=== PATIENT | female | born 1995 | race Caucasian/White ===

== ENCOUNTER 2021-12-03 07:02 | Outpatient (REF) | payer OTHER, SELFPAY ==
--- NOTE | ~2021-12-03 | XR_ITS ---
EXAMINATION: XR HIP, LEFT. XR KNEE, LEFT. CLINICAL INFORMATION: Left hip pain. Left knee pain. COMPARISON: None TECHNIQUE: AP and frog-lateral views of the left hip. 4 views of the left knee. FINDINGS: Left hip: Normal alignment. No joint space narrowing. No fracture or soft tissue calcification. Mild sclerosis along the left sacroiliac joint. Left knee: Normal alignment. No fracture. No focal osseous lesion or soft tissue calcification. No joint effusion. No joint space narrowing. XR/XR knee LT 3V IMPRESSION: Left hip: Normal. Mild sclerosis is noted along the left SI joint. Left knee: Normal.
--- NOTE | ~2021-12-03 | XR_ITS ---
EXAMINATION: XR LUMBOSACRAL SPINE CLINICAL INFORMATION: Low back pain COMPARISON: None TECHNIQUE: Three views of the lumbosacral spine. FINDINGS: Normal alignment and lumbar lordosis. No fracture or focal osseous lesion. Intervertebral disc heights are preserved. Mild sclerosis present along the left sacroiliac joint, possibly the right SI joint as well. XR/XR lumbar spine 2-3V IMPRESSION: Nonspecific sclerosis along the left and possibly right sacroiliac joints which may be degenerative or the sequela of a previous inflammatory arthritis. This could be further evaluated with MRI if indicated. Normal lumbar spine.
--- NOTE | ~2021-12-03 | XR_ITS ---
EXAMINATION: XR HIP, LEFT. XR KNEE, LEFT. CLINICAL INFORMATION: Left hip pain. Left knee pain. COMPARISON: None TECHNIQUE: AP and frog-lateral views of the left hip. 4 views of the left knee. FINDINGS: Left hip: Normal alignment. No joint space narrowing. No fracture or soft tissue calcification. Mild sclerosis along the left sacroiliac joint. Left knee: Normal alignment. No fracture. No focal osseous lesion or soft tissue calcification. No joint effusion. No joint space narrowing. XR/XR hip LT min 2V IMPRESSION: Left hip: Normal. Mild sclerosis is noted along the left SI joint. Left knee: Normal.
== END 2021-12-03 07:03 | disposition home or self-care (01) ==
LOC: HO.XRAY 07:02
PROVIDERS: PCP Internal Medicine; Visit Provider Internal Medicine
DX: M25.552 Pain in left hip (principal); M54.50 Low back pain, unspecified; M25.562 Pain in left knee
CPT/HCPCS: 72100; 73502; 73562

== ENCOUNTER 2021-12-04 13:06 | Outpatient (REF) | payer OTHER, SELFPAY ==
--- NOTE | ~2021-12-04 | XR_ITS ---
EXAMINATION: XR HIP, RIGHT CLINICAL INFORMATION: Right hip pain COMPARISON: None TECHNIQUE: Two views of the right hip. FINDINGS: No fracture, dislocation, or arthropathy. No hip joint narrowing or erosive change or visible chondrocalcinosis. The right SI joint and the pubis are unremarkable. XR/XR hip RT min 2V IMPRESSION: Normal right hip.
== END 2021-12-04 13:07 | disposition home or self-care (01) ==
LOC: HO.XRAY 13:06
PROVIDERS: PCP Internal Medicine; Visit Provider Internal Medicine
DX: M25.551 Pain in right hip (principal)
CPT/HCPCS: 73502

== ENCOUNTER 2021-12-06 19:56 | Emergency (ER) | payer OTHER, SELFPAY ==
--- NOTE | ~2021-12-06 | XR_ITS ---
EXAMINATION: XR CHEST CLINICAL INFORMATION: Chest pain COMPARISON: None TECHNIQUE: Frontal view of the chest was obtained. FINDINGS: No significant abnormality is noted involving the heart, lungs, mediastinum, bony thorax or soft tissues. There is a mild thoracolumbar scoliosis. XR/XR chest 1V IMPRESSION: No acute thoracic disease.
[2021-12-06 19:58] VITALS: BP 118/71; PULSE 81; RESP 16; TEMP 36.9; O2SAT 100; BMI 36.4
--- NOTE | 2021-12-06 20:06 | ECG_ITS ---
Test Reason : chest pain Blood Pressure : / mmHG Vent. Rate : 081 BPM Atrial Rate : 081 BPM P-R Int : 130 ms QRS Dur : 086 ms QT Int : 370 ms P-R-T Axes : 045 035 045 degrees QTc Int : 429 ms Normal sinus rhythm with sinus arrhythmia Normal ECG No previous ECGs available Referred By: Generic ED Physician Electronically Signed By:NICOLAS ANDRADE MD
[2021-12-06 20:17] LABS: MANUAL DIFF FLAG NO
[2021-12-06 20:19] LABS: Basophils Percent Auto 0.3 % (0-2); Eosinophils Absolute Auto 0.1 X10*3/uL (0.0-0.4); Eosinophils Percent Auto 1.3 % (0-4); Hematocrit 37.1 % (37.0-47.0); Hemoglobin 11.9 g/dl (12.0-16.0); Imm Gran Abs Auto 0.01 X10*3/uL (0.00-0.03); Imm Gran Pct Auto 0.2 % (0.0-0.4); Lymphocytes Absolute Auto 2.8 X10*3/uL (1.2-4.9); Mean Corpuscular HGB Conc 32.1 g/dl (31.0-35.0); Mean Corpuscular Hemoglobin 26.7 pg (27.0-33.0); Mean Corpuscular Volume 83.2 fL (80.0-98.0); Mean Platelet Volume 9.5 fL (9.4-12.3); Monocytes Absolute Auto 0.5 X10*3/uL (0.1-1.2); Monocytes Percent Auto 7.3 % (2-11); Neutrophils Percent Auto 46.9 % (45-73); Platelet Count 284 X10*3/uL (160-400); Red Blood Count 4.46 X10*6/uL (4.20-5.50); Red Cell Distribution Width 13.4 % (11.0-16.0); White Blood Count 6.3 X10*3/uL (4.8-10.8)
[2021-12-06 20:21] VITALS: BP 114/62; PULSE 72; RESP 16; TEMP 36.6; O2SAT 100
[2021-12-06 20:44] LABS: Appearance Urine CLEAR; Color Urine STRAW; Glucose Urine UA NEG (NEG); Leukocyte Esterase Urine NEG (NEG); Nitrite Urine NEG (NEG); Specific Gravity - Urine <= 1.005 (1.005-1.025); Urine Blood NEG (NEG); Urine Ketones NEG (NEG); Urine Protein NEG (NEG-TRACE)
[2021-12-06 20:46] LABS: Anion Gap 10 (12-20); Blood Urea Nitrogen 12 mg/dL (9-16); Calcium 9.4 mg/dL (8.4-10.2); Carbon Dioxide 29 mmol/L (22-29); Chloride 106 mmol/L (96-108); Creatinine Clr Calc Pharmacy 131.4; Estimated Glomerular Filt Rate > 60; Glucose Random 100 mg/dL (60-115); Sodium 141 mmol/L (135-145)
[2021-12-06 20:48] LABS: UPreg QC Valid YES; Urine Pregnancy NEGATIVE (NEGATIVE)
[2021-12-06 20:53] LABS: Troponin-I High Sensitivity < 3.5 ng/L (<3.5-17.0)
--- NOTE | 2021-12-06 21:08 | ED.CHESTPAIN ---
HPI - Chest Pain General Chief Complaint: Chest Pain Stated Complaint: chest pain has been happening for awhile Time Seen by Provider: 12/06/21 21:08 Source: patient Mode of arrival: ambulatory Limitations: no limitations History of Present Illness HPI narrative: This is a 26-year-old female presenting to the emergency department with intermittent chest pain x2 months. Patient tells me that the pain is substernal, feels like a pressure not so much pain she tells me at times she feels it lower down like it her epigastric region she tells me it is a tightness sensation/discomfort. She tells me these episodes are random she thinks they last anywhere between 5 minutes to an hour sometimes they happen daily other times they skip a day. She reports sometimes she gets palpitations however not always. She cannot tell me exactly what makes the pain better or worse. She is not experiencing chest pain at this time. She tells me that sometimes when she takes a deep breath and she feels tightness. This has been going on for the past 2 months. She tells me she has a 5-month-old at home and another child and she is under a good amount of stress. She denies any other symptoms at this time. She has no cardiac history. No significant family history. She denies drugs, alcohol and tobacco. She denies fevers, chills, shortness of breath, nausea, vomiting, abdominal pain, recent trauma, headache, dizziness, weakness, she denies calf pain, leg swell Patient is not on control medication pain MD complaint: chest discomfort Onset (ago): month(s) (2) Timing of current episode: episodic Prior episodes: Yes Pain location: substernal Pain radiation: none Severity: mild Quality: tightness Relieving factors: nothing Exacerbating factors: nothing Treatment prior to arrival: none Related Data Allergies Allergy/AdvReac Type Severity Reaction Status Date / Time iodine AdvReac Anaphylaxis Verified 12/06/21 20:12 latex AdvReac Anaphylaxis Verified 12/06/21 20:12 Review of Systems Review of Systems: Constitutional : No Weight loss, No Fever, No Chills, No Fatigue, No Malaise ENT/Mouth : No sore throat, No Rhinorrhea Eyes: No Eye Pain, No Swelling, No Redness Cardiovascular : + Chest Pain, No SOB, No Dyspnea on Exertion, No Orthopnea, No Edema, No Palpitations Respiratory : No Cough, No Sputum, No Wheezing Gastrointestinal : No Nausea, No Vomiting, No Diarrhea, No Constipation, No abdominal Pain, No Hematochezia, No Melena Genitourinary : No Dysuria, No Urinary Frequency, No Hematuria, Musculoskeletal : No joint pain, No Myalgias, No Joint Swelling Skin : No Skin Lesions, No rash Neuro : No Weakness, No Numbness, No Dizziness, No Headache Psych : No Anxiety/Panic, No Depression All other systems reviewed and are negative Yes all other systems are reviewed and are negative [facility] Past Medical History Attestation statement: The following information was validated with the patient. Source: old records reviewed and nursing notes reviewed Medical History No known health problems Social History Social History Advance Directives: No Patient : No Physical Exam Vital Signs: Vital Signs: Last Vital Signs Temp 97.8 F 12/06/21 20:21 Pulse 72 12/06/21 20:21 Resp 16 12/06/21 20:21 BP 114/62 12/06/21 20:21 Pulse Ox 100 12/06/21 20:21 BMI result Body Mass Index 36.4 VSS Appearance: Alert.? Oriented X3.? No acute distress.? Head: Normocephalic, atraumatic, no step-offs or deformities Eyes: Pupils equal, round and reactive to light.? ENT: Pharynx normal.? Neck: Normal inspection.? Neck supple.? CVS: Normal heart rate and rhythm.? Pulses normal.? Respiratory: No respiratory distress.? Breath sounds normal.? Abdomen: Soft and nontender.? Skin: Skin warm and dry.? Normal skin color.? Normal skin turgor.? Extremities: No lower extremity edema.? No calf ttp, negative Chiquis bilaterally 5/5 strength to bilateral upper and lower extremities Back: No midline tenderness, no C-spine tenderness, full range of motion, no CVA tenderness bilaterally Neuro: Oriented X 3.? No motor deficit.? No sensory deficit. CN 2-12 intact Course Reevaluation(s) Reevaluation #1: CBC within normal limits. No acute electrolyte abnormalities. Troponin less than 3.5. Urine negative. EKG pending. Chest x-ray pending. Time: 21:34 Reevaluation #2: D-dimer negative. EKG nonischemic. Unlikely ACS, unlikely PE. Chest x-ray within normal limits. At this time patient will be discharged home with cardiology follow-up. Advised her to follow-up with her PCP. Chest discomfort could be secondary to anxiety however she should follow up with Cardiology as she may require a Holter monitor to rule out various arrhythmias. Comfortable with discharge home. At time of discharge patient he in free, vital signs stable Time: 22:46 MDM - Chest Pain MDM Narrative Medical decision making narrative: 2127 26 yo f no significant pmhx presents to ed w/ substernal chest discomfort X2 months. No cardiac hx, no family cardiac hx. Under a lot of stress PE benign This is likely anxiety related however will rule out ACS. And PE. Unlikely that it is ACS or PE however it will be ruled out. Will also rule out etiologies such as pneumonia P Plan- CXR, labs, trop, dimer Medical Records Data Attestation: I reviewed the patient's medical records. Lab Data Attestation: I reviewed the patient's lab results. Result diagrams: 12/06/21 20:11 12/06/21 20:11 Labs: Lab Results 12/06/21 12/06/21 12/06/21 Range/Units 20:11 20:11 20:11 WBC 6.3 (4.8-10.8) X10*3/uL RBC 4.46 (4.20-5.50) X10*6/uL Hgb 11.9 L (12.0-16.0) g/dl Hct 37.1 (37.0-47.0) % MCV 83.2 (80.0-98.0) fL MCH 26.7 L (27.0-33.0) pg MCHC 32.1 (31.0-35.0) g/dl RDW 13.4 (11.0-16.0) % Plt Count 284 (160-400) X10*3/uL MPV 9.5 (9.4-12.3) fL Immature Gran % (Auto) 0.2 (0.0-0.4) % Neut % (Auto) 46.9 (45-73) % Lymph % (Auto) 44.0 H (20-40) % [place] % (Auto) 7.3 (2-11) % Eos % (Auto) 1.3 (0-4) % Baso % (Auto) 0.3 (0-2) % Lymph # (Auto) 2.8 (1.2-4.9) X10*3/uL [place] # (Auto) 0.5 (0.1-1.2) X10*3/uL Eos # (Auto) 0.1 (0.0-0.4) X10*3/uL Baso # (Auto) 0.0 (0.0-0.2) X10*3/uL Abs Immat Gran (auto) 0.01 (0.00-0.03) X10*3/uL Absolute Neuts (auto) 3.0 (2.0-8.3) x10*3/uL Absolute Nucleated RBC 0.000 (0.0-0.012) X10*3/uL Nucleated RBC % (auto) 0.0 (0.0-0.2) /100WBC D-Dimer High Sensitivty NG/ML Sodium 141 (135-145) mmol/L Potassium 4.0 (3.3-5.1) mmol/L Chloride 106 (96-108) mmol/L Carbon Dioxide 29 (22-29) mmol/L Anion Gap 10 L (12-20) BUN 12 (9-16) mg/dL Creatinine 0.77 (0.5-1.4) mg/dL Estim Creat Clear Calc 131.4 Estimated GFR > 60 Random Glucose 100 (60-115) mg/dL Calcium 9.4 (8.4-10.2) mg/dL Troponin I High Sens < 3.5 (<3.5-17.0) ng/L Urine Color Urine Appearance Urine pH (5.0-8.0) Ur Specific [place] (1.005-1.025) Urine Protein (NEG-TRACE) MG/DL Urine Glucose (UA) (NEG) MG/DL Urine Ketones (NEG) MG/DL Urine Blood (NEG) Urine Nitrite (NEG) Ur Leukocyte Esterase (NEG) Urine Test (NEGATIVE) 12/06/21 12/06/21 12/06/21 Range/Units 20:29 20:29 21:49 WBC (4.8-10.8) X10*3/uL RBC (4.20-5.50) X10*6/uL Hgb (12.0-16.0) g/dl Hct (37.0-47.0) % MCV (80.0-98.0) fL MCH (27.0-33.0) pg MCHC (31.0-35.0) g/dl RDW (11.0-16.0) % Plt Count (160-400) X10*3/uL MPV (9.4-12.3) fL Immature Gran % (Auto) (0.0-0.4) % Neut % (Auto) (45-73) % Lymph % (Auto) (20-40) % [place] % (Auto) (2-11) % Eos % (Auto) (0-4) % Baso % (Auto) (0-2) % Lymph # (Auto) (1.2-4.9) X10*3/uL [place] # (Auto) (0.1-1.2) X10*3/uL Eos # (Auto) (0.0-0.4) X10*3/uL Baso # (Auto) (0.0-0.2) X10*3/uL Abs Immat Gran (auto) (0.00-0.03) X10*3/uL Absolute Neuts (auto) (2.0-8.3) x10*3/uL Absolute Nucleated RBC (0.0-0.012) X10*3/uL Nucleated RBC % (auto) (0.0-0.2) /100WBC D-Dimer High Sensitivty < 150 NG/ML Sodium (135-145) mmol/L Potassium (3.3-5.1) mmol/L Chloride (96-108) mmol/L Carbon Dioxide (22-29) mmol/L Anion Gap (12-20) BUN (9-16) mg/dL Creatinine (0.5-1.4) mg/dL Estim Creat Clear Calc Estimated GFR Random Glucose (60-115) mg/dL Calcium (8.4-10.2) mg/dL Troponin I High Sens (<3.5-17.0) ng/L Urine Color STRAW Urine Appearance CLEAR Urine pH 6.0 (5.0-8.0) Ur Specific [place] <= 1.005 (1.005-1.025) Urine Protein NEG (NEG-TRACE) MG/DL Urine Glucose (UA) NEG (NEG) MG/DL Urine Ketones NEG (NEG) MG/DL Urine Blood NEG (NEG) Urine Nitrite NEG (NEG) Ur Leukocyte Esterase NEG (NEG) Urine Test NEGATIVE (NEGATIVE) ECG Data ECG #1: Attestation: I personally reviewed and interpreted this ECG as follows: ECG interpretation date: 12/06/21 ECG interpretation time: 22:47 Prior ECG tracings: not available for review Interpretation: Ventricular rate of 81, CT normal, QRS normal, QT/QTC normal. EKG shows normal sinus rhythm with sinus arrhythmia. No ST elevations or inversions concerning for ischemia. No previous to compare with. Critical Care Time Critical Care Time Critical Care Time: No Discharge Plan Discharge Clinical Impression: Chest pain not due to acute coronary syndrome Patient Disposition: Home, Self-Care Instructions: Chest Wall Pain (ED) Additional Instructions: Take your medications as prescribed. If you were prescribed antibiotics today, it is important that you take your medication to their entirety, do not skip any doses, do not finish them early. Follow-up with your primary care provider this week. Follow-up with Cardiology if her symptoms do not improve within a week. Return to the emergency department with new or worsening symptoms. In case of emergency call 911 Your EKG was normal. Cardiac enzymes were within normal limits. Your chest x-ray was also within normal limits. Your screening test for a blood clot was negative. Referrals: Saravanan Stokes MD [Primary Care Provider] - 2 days Huseyin Key MD [Physician] - 1 week Stand Alone Forms: Work/School Release
[2021-12-06 22:10] LABS: D Dimer High Sensitivity < 150 NG/ML
--- NOTE | 2021-12-06 23:08 | PC.NURSE ---
I assumed care of this pt upon her arrival to bed 19. She states she came to the ED for evaluation of chest tightness/pressure that she experiences intermittently, at least once a day for a while now. She appears well. Currently she is chest pain/chest pressure free. Respirations spontaneous and non-labored, speech clear and appropriate, no cyanosis, she speaks in full sentences. She is alert, oriented x 3, calm and cooperative and makes eye contact with RN. No nausea. No vomiting. No change in bowel or bladder habits. She was seen by ER MD, additional labs were obtained - which were negative - and she has been discharged at this time. She verbalized an understanding of all D/C orders and ambulated out of the ED independently and with steady gait.
== END 2021-12-06 23:08 | disposition home or self-care (01) ==
PROVIDERS: Physician Assistant; Emergency Provider Emergency Medicine Emergency Medical Services; PCP Internal Medicine
DX: R07.89 Other chest pain (principal)
CPT/HCPCS: 36415; 71045; 80048; 81003; 81025; 84484; 85025; 85379; 93005; 99283

== ENCOUNTER 2022-07-01 13:41 | Outpatient (REF) | payer OTHER, SELFPAY ==
--- NOTE | ~2022-07-01 | US_ITS ---
EXAMINATION: US PELVIS CLINICAL INFORMATION: Abnormal uterine and vaginal bleeding COMPARISON: None TECHNIQUE: Ultrasound of the pelvis is performed using both transabdominal and transvaginal transducers along with Doppler. Transvaginal imaging is performed due to inadequate visualization transabdominally. FINDINGS: The uterus is anteverted and measures 8.7 x 5 x 6.2 cm in dimension. No focal uterine lesion is seen. Endometrial thickness is normal measuring 1.1 cm. The right ovary measures 4.7 x 3.3 x 3.4 cm. There is a 2.2 x 2.6 x 1.9 cm complex right ovarian cyst. This is irregular in shape and has a thickened echogenic wall and probably represents an involuting physiologic cyst. The left ovary is normal-appearing and measures 3.9 x 2.4 x 2.4 cm. There is a small amount of fluid in the pelvis. US/US pelvic and transvaginal IMPRESSION: Normal thickness endometrium. 2.2 x 2.6 x 1.9 cm complex right ovarian cyst probably representing an involuting physiologic cyst.
== END 2022-07-01 13:42 | disposition home or self-care (01) ==
LOC: HO.HMGCX 13:41
PROVIDERS: PCP Internal Medicine; Visit Provider Internal Medicine
DX: N93.9 Abnormal uterine and vaginal bleeding, unspecified (principal)
CPT/HCPCS: 76830; 76856

== ENCOUNTER → 2023-03-02 10:10 | Outpatient (BNVA) | payer OTHER, SELFPAY | PROVIDERS: PCP Internal Medicine; Visit Provider Physician Assistant Surgical ==

== ENCOUNTER 2023-07-09 07:12 | Outpatient (REF) | payer OTHER, SELFPAY | END 2023-07-09 07:13 | disposition home or self-care (01) | LOC: HO.XRAY 07:12 | PROVIDERS: PCP Internal Medicine; Visit Provider Internal Medicine | DX: M25.552 Pain in left hip (principal) | CPT/HCPCS: 73522 ==

== ENCOUNTER 2023-08-11 13:34 | Outpatient (AMB) | payer OTHER, SELFPAY ==
[2023-08-11 14:22] VITALS: BP 122/78; PULSE 84; TEMP 36.6; O2SAT 98; BMI 33.5
--- NOTE | 2023-08-11 14:22 | AM.OFFWIN_ITS ---
Intake Vital Signs 08/11/23 14:22 Height 5 ft 5 in Weight 201 lb 4 oz BMI 33.5 BP 122/78 Blood Pressure Location Rt brachial Position Sitting Pulse 84 Pulse Source Pulse Oximeter Temp 97.8 F Temp Source Temporal Artery Scan Pulse Oximetry (%) 98 Oxygen Delivery Method Room Air Intake Visit Reasons: Ep, congestion, cough (masked) Intake Note: pt is here for c/o cough and congestion Allergies iodine Adverse Reaction (Verified 08/11/23 15:07) Anaphylaxis latex Adverse Reaction (Verified 08/11/23 15:07) Anaphylaxis BEES Allergy (Mild, Uncoded 08/11/23 15:07) Anaphylaxis Medication List - Last Reconciled 08/11/23 by Lauro Duffy MD azithromycin take 500 mg today (day 1), then 250 mg for 4 days (days 2-5) PO duloxetine 20 mg PO BID PNV cmb#95-ferrous fumarate-FA 28 mg iron- 800 mcg () 1 tab PO DAILY prednisone 60 mg (3 x 20 mg) PO DAILY propranolol 10 mg PO BID Do you need a note to return to daycare/school/sports/work: Yes HPI Ep, congestion, cough (masked) HPI Details Patient presents for a sick visit. Reporting symptoms of sinus congestion, sore throat and difficulty swallowing. Low-grade fever. No family member is sick. No recent travel. Patient reports symptoms of malaise and fatigue. [facility] Medical History No known health problems Physical Exam Vital Signs: Last Vital Signs Temp 97.8 F 08/11/23 14:22 Pulse 84 08/11/23 14:22 BP 122/78 08/11/23 14:22 Pulse Ox 98 08/11/23 14:22 Oxygen Delivery Method Room Air 08/11/23 14:22 BMI result Body Mass Index 33.5 Const General: cooperative and healthy appearing Nutritional Appearance: well nourished Orientation/consciousness: patient oriented x3 Limitations: no limitations HEENT Head: Yes normal to inspection Eyes General: appearance normal, both eyes and all related structures Neck Neck: Yes normal visual inspection Chest Chest palpation & inspection: normal palpation of entire chest wall Resp Effort & Inspection: normal respiratory effort Neuro General: patient oriented x3 Assessment & Plan Assessment & Plan (1) Upper respiratory tract infection: Code(s): J06.9 - Acute upper respiratory infection, unspecified Plan: Antibiotics ordered. Increase fluid intake. Tylenol for aches and pains. If symptoms worsen, follow-up here for a recheck. Medications: New azithromycin take 500 mg today (day 1), then 250 mg for 4 days (days 2-5) PO 6 tabs 0RF prednisone 60 mg (3 x 20 mg) PO DAILY 9 tabs 0RF Coding Level of Care Code Est Pt Level 3 (46371) Diagnoses Upper respiratory tract infection J06.9
== END 2023-08-11 15:27 | disposition home or self-care (01) ==
PROVIDERS: PCP Internal Medicine; Visit Provider Internal Medicine
DX: J06.9 Acute upper respiratory infection, unspecified (principal)
CPT/HCPCS: 99213

== ENCOUNTER 2023-08-11 15:33 | Outpatient (REF) | payer OTHER, SELFPAY ==
[2023-08-11 18:28] LABS: Influenza A PCR NEGATIVE (Negative); Influenza B PCR NEGATIVE (Negative); Resp Syncy Virus RNA Qual PCR NEGATIVE (Negative); SARS COV2 PCR INHOUSE NEGATIVE (Negative)
== END 2023-08-11 15:34 | disposition home or self-care (01) ==
LOC: HO.LNP 15:33
PROVIDERS: Visit Provider Internal Medicine
DX: R09.89 Other specified symptoms and signs involving the circulatory and respiratory systems (principal); Z20.822 Contact with and (suspected) exposure to COVID-19
CPT/HCPCS: 0241U

== ENCOUNTER 2023-09-15 10:03 | Outpatient (REF) | payer OTHER, SELFPAY ==
--- NOTE | ~2023-09-15 | FL_ITS ---
EXAMINATION: XR FLUOROSCOPY UPPER GI WITH AIR CLINICAL INFORMATION: Chest pain COMPARISON: None TECHNIQUE: Fluoroscopic air contrast upper GI examination was performed utilizing standard techniques with thin and thick barium and effervescent granules. Numerous spot images were obtained. FINDINGS: Dual and single contrast images of the esophagus demonstrate normal caliber, contour, and mucosal pattern. No evidence of stricture, mass, or ulcerations identified. Esophageal peristalsis was normal. A small type I hiatal hernia is present. Gastroesophageal reflux is seen in the distal esophagus. Dual contrast and single contrast images of the stomach demonstrated normal contour without evidence of mass. Gastric mucosal folds appear grossly normal. Contrast freely passed into the gastric antrum and duodenal bulb without delay. Single and air-contrast images of the duodenal bulb demonstrate no abnormality. The duodenal sweep has a normal appearance, course, and mucosal fold appearance. The imaged proximal jejunum has a normal fold pattern and caliber. FLUOROSCOPY TIME: 3 minutes 21 seconds Number of Spot Images: 14 Number of Cine: 7 DOSE AREA PRODUCT: 1950 uGy-m2 (microgray-meter squared) FL/FL upper GI series IMPRESSION: 1. Small type I hiatal hernia 2. Mild gastroesophageal reflux This procedure was performed by Andres Sifuentes PA-C, and supervised by Dr. Man
== END 2023-09-15 10:04 | disposition home or self-care (01) ==
LOC: HO.XRAY 10:03
PROVIDERS: PCP Internal Medicine; Visit Provider Internal Medicine
DX: R07.89 Other chest pain (principal)
CPT/HCPCS: 74240

== ENCOUNTER → 2023-09-15 10:05 | Outpatient (BNV) | payer OTHER, SELFPAY | PROVIDERS: PCP Internal Medicine; Visit Provider Radiology Diagnostic Radiology | DX: R07.9 Chest pain, unspecified (principal) | CPT/HCPCS: 74246 ==

== ENCOUNTER 2023-10-22 10:09 | Outpatient (REF) | payer OTHER, SELFPAY ==
[2023-10-22 14:42] LABS: Vitamin D 25-OH Total 32.9 ng/mL (>30)
[2023-10-22 15:00] LABS: Folate > 20.0 ng/mL (> or = 4.0)
[2023-10-22 15:27] LABS: Vitamin B12 495 pg/mL (200-900)
== END 2023-10-22 10:10 | disposition home or self-care (01) ==
LOC: HO.MANLDS 10:09
PROVIDERS: Visit Provider Internal Medicine
DX: E55.9 Vitamin D deficiency, unspecified (principal)
CPT/HCPCS: 36415; 82306; 82607; 82746

== ENCOUNTER 2024-02-09 09:58 | Outpatient (REF) | payer OTHER, SELFPAY ==
--- NOTE | ~2024-02-09 | XR_ITS ---
EXAMINATION: XR SHOULDER, LEFT CLINICAL INFORMATION: Pain left shoulder COMPARISON: None available. TECHNIQUE: AP external rotation, Grashey, scapular Y, and axillary views of the left shoulder. FINDINGS: The bones are intact. No fracture. Glenohumeral and acromioclavicular alignment is anatomic with normal joint space. No abnormal soft tissue calcifications. XR/XR shoulder LT min 2V IMPRESSION: No bony abnormality.
--- NOTE | ~2024-02-09 | XR_ITS ---
EXAMINATION: XR WRIST, LEFT CLINICAL INFORMATION: Pain in left wrist COMPARISON: None available. TECHNIQUE: PA, lateral, and oblique views of the left wrist. Dedicated scaphoid view. FINDINGS: The bones are intact. No fracture. Alignment is anatomic with normal joint spaces. No erosions or abnormal soft tissue calcifications. XR/XR wrist LT min 3V IMPRESSION: No bony abnormality.
== END 2024-02-09 09:59 | disposition home or self-care (01) ==
LOC: HO.XRAY 09:58
PROVIDERS: PCP Internal Medicine; Visit Provider Internal Medicine
DX: M25.532 Pain in left wrist (principal); M25.512 Pain in left shoulder
CPT/HCPCS: 73030; 73110

== ENCOUNTER 2024-08-21 15:54 | Outpatient (REF) | payer OTHER, SELFPAY ==
--- NOTE | ~2024-08-21 | XR_ITS ---
EXAMINATION: XR LUMBOSACRAL SPINE CLINICAL INFORMATION: LOW BACK PAIN COMPARISON: X-rays of lumbar sacral spine December 2021 TECHNIQUE: Three views of the lumbosacral spine. FINDINGS: The vertebral bodies and posterior elements are normal. The disc spaces are preserved and the vertebral alignment is normal. The paraspinal soft tissues are normal. Persistent subtle nonspecific sclerosis along the left and right sacroiliac joints unchanged. XR/XR lumbar spine 2-3V IMPRESSION: No acute abnormality. Sclerosis along the sacroiliac joints of uncertain significance but unchanged. 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
== END 2024-08-21 15:55 | disposition home or self-care (01) ==
LOC: HO.XRAY 15:54
PROVIDERS: PCP Internal Medicine; Visit Provider Internal Medicine
DX: M54.50 Low back pain, unspecified (principal)
CPT/HCPCS: 72100